=== PATIENT | male | born 1935 | race Caucasian/White ===

== ENCOUNTER 2018-10-06 17:42 | Inpatient (IN) | payer MEDICARE, OTHER | END 2018-10-09 15:58 | LOC: ER 17:42 → ORTHO 4S 10-07 07:18 → ED HOLD 21:07 | PROC: 0QS606Z Reposition Right Upper Femur with Intramedullary Internal Fixation Device, Open Approach (ICD-10-PCS; principal; 2018-10-07 14:58) | DX: S72.141A Displaced intertrochanteric fracture of right femur, initial encounter for closed fracture (principal); N17.9 Acute kidney failure, unspecified; D62 Acute posthemorrhagic anemia ==

== ENCOUNTER 2019-09-13 11:01 | Emergency (ER) | payer MEDICARE ==
[~2019-09-13] VITALS: Ht 167.6 cm; Wt 52.7 kg
[~2019-09-13 11:01] MED LIST: CHOL100046 PO
[2019-09-13 11:40] LABS: BASOPHILS # (AUTO) 0.2 X10'3 (0-0.2); BASOPHILS % (AUTO) 0.7 % (0-1); EOSINOPHILS % (AUTO) 0 % (0-6); HEMATOCRIT 35.5 % (42.0-52.0); HEMOGLOBIN 11.8 g/dl (14.0-17.9); LYMPHOCYTES # (AUTO) 0.4 X10'3 (1.1-4.8); LYMPHOCYTES % (AUTO) 1.6 % (21-51); MEAN CORPUSCULAR HEMOGLOBIN 26.1 PG (27.0-31.0); MEAN CORPUSCULAR HGB CONC 33.1 g/dL (33.0-36.5); MEAN CORPUSCULAR VOLUME 78.8 FL (78-98); MEAN PLATELET VOLUME 6.1 FL (7.4-10.4); MONOCYTES # (AUTO) 0.8 X10'3 (0-0.9); MONOCYTES % (AUTO) 3.2 % (2-12); NEUTROPHILS # (AUTO) 23.2 X10'3 (1.8-7.7); NEUTROPHILS % (AUTO) 94.5 % (42-75); PLATELET COUNT 460 X10'3 (140-440); RED BLOOD COUNT 4.51 X10'6 (4.70-6.10); RED CELL DISTRIBUTION WIDTH 15.9 % (11.5-14.5); WHITE BLOOD COUNT 24.5 X10'3 (4.5-11.0)
[2019-09-13] MEDS ORDERED: aspirin 325mg tablet PO ONE (11:45)
[2019-09-13 11:53] LABS: PARTIAL THROMBOPLASTIN TIME 30 SECONDS (22-32)
[2019-09-13 11:55] LABS: ALANINE AMINOTRANSFERASE 17 U/L (12-78); ALBUMIN 2.4 G/DL (3.4-5.0); ALBUMIN/GLOBULIN RATIO 0.6 (1.1-1.5); ALKALINE PHOSPHATASE 125 IU/L (46-116); ANION GAP 7 (8-16); ASPARTATE AMINO TRANSFERASE 24 U/L (10-37); BILIRUBIN,TOTAL 0.4 MG/DL (0.1-1.0); BLOOD UREA NITROGEN 23 MG/DL (7-18); CALCIUM 8.1 MG/DL (8.5-10.1); CHLORIDE 97 MMOL/L (99-107); CREATININE 0.92 MG/DL (0.60-1.10); GLUCOSE 120 MG/DL (70-104); POTASSIUM 4.3 MMOL/L (3.5-5.1); SODIUM 130 MMOL/L (135-145); TOTAL CARBON DIOXIDE 26.2 MMOL/L (24-32); TOTAL PROTEIN 6.4 G/DL (6.4-8.2); eGFR 78 ML/MIN
[2019-09-13 12:00] LABS: TROPONIN I < 0.04 NG/ML (0.0-0.05)
[2019-09-13 13:03] VITALS: BP 122/61
== END 2019-09-13 13:06 | disposition short-term general hospital (02) ==
LOC: ER 11:03
DX: S06.309A Unspecified focal traumatic brain injury with loss of consciousness of unspecified duration, initial encounter (principal); S06.9X9A Unspecified intracranial injury with loss of consciousness of unspecified duration, initial encounter; S06.9X0A Unspecified intracranial injury without loss of consciousness, initial encounter; S51.011A Laceration without foreign body of right elbow, initial encounter; S01.81XA Laceration without foreign body of other part of head, initial encounter; S50.311A Abrasion of right elbow, initial encounter; R47.01 Aphasia; J44.9 Chronic obstructive pulmonary disease, unspecified; I50.9 Heart failure, unspecified; F17.200 Nicotine dependence, unspecified, uncomplicated; Z79.899 Other long term (current) drug therapy; W18.30XA Fall on same level, unspecified, initial encounter; Y93.89 Activity, other specified; Y92.89 Other specified places as the place of occurrence of the external cause; Y99.8 Other external cause status
CPT/HCPCS: 36415; 70450; 71045; 73080; 80053; 82948; 84484; 85025; 85610; 85730; 93005; 99291